=== PATIENT | female | born 1945 | race Two or more races ===

== ENCOUNTER 2018-01-08 13:14 | Emergency (ER) | payer MEDICARE ==
[~2018-01-08] VITALS: Ht 160 cm; Wt 114.3 kg
[~2018-01-08 13:14] MED LIST: ALBU5SOL6 PO; CARV6.2512 PO; CEFD300C37 PO; CYAN1TAB29 PO; FURO-93 PO; LOSA50TA2 PO; LOSA50TA7 PO; SOTA120T26 PO; SOTA80TA PO; TRIA115C HOMETP; WARF-36 PO; [UNRECOGNIZED DRUG - REMARK]
[2018-01-08 14:11] LABS: RAPID INFLUENZA A Negative (Negative); RAPID INFLUENZA B Negative (Negative)
[2018-01-08] MEDS ORDERED: BENZONATATE 100 MG CAPSULE PO ONE (14:30)
[2018-01-08 14:47] LABS: BASOPHILS # (AUTO) 0.02 x10^3/uL (0-0.1); BASOPHILS % (AUTO) 0 % (0-1); EOSINOPHILS # (AUTO) 0.19 x10^3/uL (0-0.4); EOSINOPHILS % (AUTO) 2 % (1-7); LYMPHOCYTES # (AUTO) 1.56 x10^3/uL (1-3.4); LYMPHOCYTES % (AUTO) 19 % (22-44); MD NO; MEAN CORPUSCULAR HEMOGLOBIN 25.6 pg (27.0-34.8); MEAN PLATELET VOLUME 9.4 fL (7.4-10.4); MONOCYTES # (AUTO) 0.92 x10^3/uL (0.2-0.8); MONOCYTES % (AUTO) 11 % (2-9); NEUTROPHILS # (AUTO) 5.38 x10^3/uL (1.8-6.8); NEUTROPHILS % (AUTO) 67 % (42-75); PLATELET COUNT 273 x10^3/uL (130-400); RED BLOOD COUNT 4.42 x10^6/uL (3.82-5.3); RED CELL DISTRIBUTION WIDTH 15.8 % (9.6-15.2)
[2018-01-08 15:00] LABS: ANION GAP 8 mmol/L (5-15); CALCIUM 8.5 mg/dL (8.5-10.1); CHLORIDE 111 mmol/L (98-107); CREATININE 0.64 mg/dL (0.55-1.02)
[2018-01-08 15:01] LABS: INTERNATIONAL NORMALIZED RATIO 1.06 (0.93-1.1)
[2018-01-08 15:03] LABS: TROPONIN I < 0.015 ng/mL (0.000-0.045)
[2018-01-08] MEDS ORDERED: BENZONATATE 100 MG CAPSULE ONE (15:08)
[2018-01-08 15:45] LABS: MICROSCOPIC INDICATED
[2018-01-08 15:47] LABS: CULTURE INDICATED? YES
[2018-01-08 17:14] VITALS: BP 148/75
== END 2018-01-08 17:17 | disposition home or self-care (01) ==
LOC: ED 16:50
DX: J20.8 Acute bronchitis due to other specified organisms (principal); B97.89 Other viral agents as the cause of diseases classified elsewhere; I50.9 Heart failure, unspecified; I48.91 Unspecified atrial fibrillation; I11.0 Hypertensive heart disease with heart failure; E11.9 Type 2 diabetes mellitus without complications
CPT/HCPCS: 36415; 71045; 80048; 81001; 82040; 83605; 83880; 84484; 85025; 85610; 85730; 87040; 87077; 87086; 87186; 87400; 93005; 99285

== ENCOUNTER → 2018-06-29 | Outpatient (CLI) | payer MEDICARE, OTHER ==
[~2018-06-29] MED LIST changes: +LOSA50TA14 PO; -LOSA50TA7 PO
== END | disposition home or self-care (01) ==
LOC: CFH 13:20
PROVIDERS: ATTEND Internal Medicine Cardiovascular Disease
DX: I11.0 Hypertensive heart disease with heart failure (principal); I50.9 Heart failure, unspecified; I08.2 Rheumatic disorders of both aortic and tricuspid valves; I48.91 Unspecified atrial fibrillation; E11.9 Type 2 diabetes mellitus without complications
CPT/HCPCS: 93306

== ENCOUNTER 2019-01-31 21:17 | Emergency (ER) | payer OTHER ==
[~2019-01-31] VITALS: Ht 157.5 cm; Wt 113.1 kg
--- NOTE | 2019-01-31 21:23 | NUR ---
EKG IN TRIAGE
[2019-01-31] MEDS ORDERED: SODIUM CHLORIDE FLUSH 10ML SYR IVF ONE (21:30)
--- NOTE | 2019-01-31 21:31 | NUR ---
Patient states she had shortness of breath secondary to a cough since yesterday. She has a history of a pacemaker and CHF. Patient's weight has been fluctuating. Patient has tenderness in her LLQ when palpated. Patient denies fever.
--- NOTE | 2019-01-31 21:38 | NUR ---
86% on RA. 88% on 4 lpm. Increased to 5 lpm. Patient O2 remains the same. RT in room with tx.
--- NOTE | 2019-01-31 22:39 | NUR ---
Pt refusing any iv's from rn's in ed. "i just really want someone that is really good at it." Refuses to allow attempts by any rns in this ed. aware.
[2019-01-31 23:16] LABS: BASOPHILS # (AUTO) 0.16 x10^3/uL (0-0.1); BASOPHILS % (AUTO) 1 % (0-1); EOSINOPHILS # (AUTO) 0.25 x10^3/uL (0-0.4); EOSINOPHILS % (AUTO) 2 % (1-7); LYMPHOCYTES % (AUTO) 18 % (22-44); MD NO; MEAN CORPUSCULAR HEMOGLOBIN 25.2 pg (27.0-34.8); MEAN CORPUSCULAR HGB CONC 31.3 g/dL (32.4-35.8); MEAN CORPUSCULAR VOLUME 80.5 fL (80-100); MEAN PLATELET VOLUME 9.8 fL (7.4-10.4); MONOCYTES # (AUTO) 0.96 x10^3/uL (0.2-0.8); MONOCYTES % (AUTO) 7 % (2-9); NEUTROPHILS % (AUTO) 72 % (42-75); PLATELET COUNT 251 x10^3/uL (130-400); RED CELL DISTRIBUTION WIDTH 16.3 % (9.6-15.2)
[2019-01-31 23:19] LABS: ALANINE AMINOTRANSFERASE 18 U/L (12-78); ALBUMIN 3.1 g/dL (3.4-5.0); ANION GAP 5 mmol/L (5-15); CALCIUM 8.6 mg/dL (8.5-10.1); CHLORIDE 115 mmol/L (98-107)
[2019-01-31 23:21] LABS: ALKALINE PHOSPHATASE 123 U/L (45-117); BILIRUBIN,TOTAL 0.2 mg/dL (0.2-1.0); TOTAL PROTEIN 6.9 g/dL (6.4-8.2); TROPONIN I < 0.015 ng/mL (0.000-0.045)
[2019-01-31 23:22] VITALS: BP 149/69
[2019-02-01] MEDS ORDERED: ALBUTEROL/IPRATROPIUM 2.5MG/0.5MG, 3 ML NPPB ONE
== END 2019-02-01 00:30 | disposition home or self-care (01) ==
LOC: ED 02-01 00:11
DX: J20.9 Acute bronchitis, unspecified (principal); R06.09 Other forms of dyspnea; I11.0 Hypertensive heart disease with heart failure; I50.9 Heart failure, unspecified; I48.91 Unspecified atrial fibrillation; E11.9 Type 2 diabetes mellitus without complications; Z95.0 Presence of cardiac pacemaker; Z90.710 Acquired absence of both cervix and uterus
CPT/HCPCS: 36415; 71045; 80053; 83880; 84484; 85025; 93005; 94640; 99283; 99284; J7620

== ENCOUNTER 2019-05-17 11:46 | Inpatient (IN) | payer MEDICARE, OTHER ==
[~2019-05-17] VITALS: Ht 160 cm; Wt 101.0 kg
--- NOTE | 2019-05-17 12:41 | NUR ---
PT TO ROOM 28 PER PEDIS WITH MASK IN PLACE. PT C/O SOB X2 DAYS WITH A SMALL PRODUCTIVE COUGH WITH WHITE SPUTM. PT WANTS TO MAKE SURE THIS IS HER CHF AND NOT THE COVID 19. PT IS ALERT AND ORIENTED X4, WITH FROM ALL EXTREMITIES. PT DOES BECOME WINDED WITH SMALL ACTIVITY. MD IN TO ASSESS PATIENT. WILL AWAIT RN ORDERS.
--- NOTE | 2019-05-17 13:11 | NUR ---
PT RESTING IN BED, AWAITING TEST RESULTS. NO NEEDS AT THIS TIME, WILL CONTINUE TO MONITOR.
[2019-05-17 13:17] LABS: ALBUMIN 3.2 g/dL (3.4-5.0); ANION GAP 8 mmol/L (5-15); CALCIUM 8.6 mg/dL (8.5-10.1); CHLORIDE 110 mmol/L (98-107); CREATININE 0.75 mg/dL (0.55-1.02)
[2019-05-17 13:20] LABS: TROPONIN I < 0.015 ng/mL (0.000-0.045)
[2019-05-17 13:28] LABS: MEAN CORPUSCULAR VOLUME 79.1 fL (80-100); MEAN PLATELET VOLUME 9.6 fL (7.4-10.4); PLATELET COUNT 450 x10^3/uL (130-400); RED BLOOD COUNT 4.88 x10^6/uL (3.82-5.3); RED CELL DISTRIBUTION WIDTH 22.7 % (9.6-15.2)
[2019-05-17 13:36] LABS: MEAN CORPUSCULAR HEMOGLOBIN 24.8 pg (27.0-34.8); MEAN CORPUSCULAR HGB CONC 31.3 g/dL (32.4-35.8)
[2019-05-17 13:39] LABS: MD YES
[2019-05-17 14:05] LABS: BAND#(MANUAL) 21.02 x10^3/uL; BANDS%(MANUAL) 20 % (0-7); BASOS% (MANUAL) 2 % (0-1); EOS#(MANUAL) 3.15 x10^3/uL (0.0-0.4); EOS% (MANUAL) 3 % (1-7); LYMPH#(MANUAL) 11.56 x10^3/uL (1-3.4); LYMPHS% (MANUAL) 11 % (22-44); METAMYELOCYTES# (MANUAL) 10.51 x10^3/uL (0-0); METAMYELOCYTES% (MANUAL) 10 % (0-1); MONOS% (MANUAL) 4 % (2-9); NRBC % (MANUAL) 2 % (0-1); PROGRANULOCYTES# (MANUAL) 1.05 x10^3/uL (0-0); PROGRANULOCYTES% (MANUAL) 1 % (0-0)
[2019-05-17 14:07] LABS: ANISOCYTOSIS 1+; HYPOCHROMIA 1+; MYELOCYTES% (MANUAL) 11 % (0-0); POLYCHROMASIA 1+
[2019-05-17 14:08] LABS: <PLATELET ESTIMATE> INCREASED; <PLT MORPHOLOGY> NORMAL PLT MORPH; SEGS% (MANUAL) 38 % (42-75)
--- NOTE | 2019-05-17 14:45 | NUR ---
PT INFORMED MY MD THAT SHE IS BEING ADMITTED DUE TO VERY HIGH WBC'S. WILL PUT AN IV IN FOR PATIENT PLACEMENT ONTO FLOOR.
[2019-05-17] MEDS ORDERED: ONDANSETRON ODT 4 MG PO PRN (16:00)
[2019-05-17] MEDS ORDERED: BISACODYL 10 MG SUPP PR PRN (16:00)
[2019-05-17] MEDS ORDERED: ONDANSETRON 2MG/ML, 2ML IVPush PRN (16:00)
[2019-05-17] MEDS ORDERED: ENOXAPARIN 40 MG/0.4 ML SQ SCH (16:00)
[2019-05-17] MEDS ORDERED: DOCUSATE 100 MG CAPSULE PO PRN (16:00)
--- NOTE | 2019-05-17 16:01 | NUR ---
TP RN: PT ADMITTED TO ONCOLOGY. NO RESP TESTING PRIOR TO ADMIT PER ERP/HOSPITALIST
[2019-05-17] MEDS: metFORMIN 500 MG TABLET PO SCH (18:03)
[2019-05-17 18:33] VITALS: BP 153/75
[2019-05-17] MEDS ORDERED: APIXABAN 5 MG TABLET PO SCH (21:00)
[2019-05-18 01:08] VITALS: BP 126/55
[2019-05-18 05:51] LABS: ALBUMIN 3.1 g/dL (3.4-5.0); ANION GAP 7 mmol/L (5-15); CALCIUM 8.8 mg/dL (8.5-10.1); CHLORIDE 109 mmol/L (98-107)
[2019-05-18 05:55] LABS: MEAN CORPUSCULAR HEMOGLOBIN 25.8 pg (27.0-34.8); MEAN CORPUSCULAR HGB CONC 33.5 g/dL (32.4-35.8); MEAN CORPUSCULAR VOLUME 77.1 fL (80-100); MEAN PLATELET VOLUME 9.6 fL (7.4-10.4); PLATELET COUNT 366 x10^3/uL (130-400); RED BLOOD COUNT 4.48 x10^6/uL (3.82-5.3); RED CELL DISTRIBUTION WIDTH 21.1 % (9.6-15.2)
[2019-05-18 05:56] LABS: ALANINE AMINOTRANSFERASE 24 U/L (12-78); ALKALINE PHOSPHATASE 112 U/L (45-117); BILIRUBIN,TOTAL 0.4 mg/dL (0.2-1.0); CREATININE 0.73 mg/dL (0.55-1.02); MD YES; TOTAL PROTEIN 6.9 g/dL (6.4-8.2)
[2019-05-18 06:00] LABS: BAND#(MANUAL) 21.85 x10^3/uL; BANDS%(MANUAL) 22 % (0-7); EOS#(MANUAL) 1.99 x10^3/uL (0.0-0.4); EOS% (MANUAL) 2 % (1-7); LYMPH#(MANUAL) 6.95 x10^3/uL (1-3.4); LYMPHS% (MANUAL) 7 % (22-44); MONOS#(MANUAL) 1.99 x10^3/uL (0.3-2.7); MONOS% (MANUAL) 2 % (2-9); NRBC % (MANUAL) 1 % (0-1)
[2019-05-18 06:02] LABS: ANISOCYTOSIS 1+; BASOS#(MANUAL) 0.99 x10^3/uL (0-0.1); BASOS% (MANUAL) 1 % (0-1); METAMYELOCYTES# (MANUAL) 11.92 x10^3/uL (0-0); METAMYELOCYTES% (MANUAL) 12 % (0-1); MYELOCYTES# (MANUAL) 8.94 x10^3/uL (0-0); MYELOCYTES% (MANUAL) 9 % (0-0); SEG#(MANUAL) 44.69 x10^3/uL (1.8-6.8); SEGS% (MANUAL) 45 % (42-75)
[2019-05-18 06:03] LABS: <PLATELET ESTIMATE> ADEQUATE; <PLT MORPHOLOGY> NORMAL PLT MORPH; HYPOCHROMIA 1+; POLYCHROMASIA 1+
[2019-05-18] MEDS: metFORMIN 500 MG TABLET PO SCH ×2 (08:00→18:34)
[2019-05-18] MEDS: GUAIFENESIN/DM 200-20MG, 10ML UDC PO PRN ×2 (08:35→20:17)
[2019-05-18] MEDS: LOSARTAN 50MG TABLET PO SCH (08:35)
[2019-05-18] MEDS: FOLIC ACID 1 MG TABLET PO SCH (08:37)
[2019-05-18] MEDS: FUROSEMIDE 40 MG TABLET PO SCH ×2 (08:37→20:18)
[2019-05-18] MEDS: CYANOCOBALAMIN 1,000 MCG TABLET PO SCH ×2 (08:38→20:18)
[2019-05-18 09:39] VITALS: BP 134/79
[2019-05-18] MEDS ORDERED: LIDOCAINE 1%, 10ML ONE (11:16)
[2019-05-18] MEDS ORDERED: FLUMAZENIL 0.1 MG/1 ML, 5ML ONE (11:35)
[2019-05-18] MEDS ORDERED: NALOXONE 1 MG/ML, 2ML ONE (11:35)
[2019-05-18] MEDS ORDERED: MIDAZOLAM 1 MG/ML, 5ML ONE (11:35)
[2019-05-18] MEDS ORDERED: FENTANYL PF 100 MCG/2ML ONE ×2 (11:35)
[2019-05-18 12:41] VITALS: BP 116/69
[2019-05-18 18:51] VITALS: BP 130/72
[2019-05-18] MEDS: ALBUTEROL SULFATE 2.5 MG/3 ML NPPB PRN (19:05)
[2019-05-18] MEDS: APIXABAN 5 MG TABLET PO SCH (20:17)
[2019-05-18] MEDS: HYDROXYUREA 500 MG CAPSULE PO SCH (21:30)
[2019-05-19 01:24] VITALS: BP 120/69
[2019-05-19 08:03] LABS: MEAN CORPUSCULAR HEMOGLOBIN 24.4 pg (27.0-34.8); MEAN CORPUSCULAR HGB CONC 31.6 g/dL (32.4-35.8); MEAN CORPUSCULAR VOLUME 77.2 fL (80-100); MEAN PLATELET VOLUME 9.1 fL (7.4-10.4); PLATELET COUNT 433 x10^3/uL (130-400); RED BLOOD COUNT 4.67 x10^6/uL (3.82-5.3); RED CELL DISTRIBUTION WIDTH 21.8 % (9.6-15.2)
[2019-05-19 08:11] VITALS: BP 129/77
[2019-05-19] MEDS: FOLIC ACID 1 MG TABLET PO SCH (08:18)
[2019-05-19] MEDS: CYANOCOBALAMIN 1,000 MCG TABLET PO SCH (08:18)
[2019-05-19] MEDS: LOSARTAN 50MG TABLET PO SCH (08:19)
[2019-05-19] MEDS: APIXABAN 5 MG TABLET PO SCH ×2 (08:19→20:43)
[2019-05-19] MEDS: FUROSEMIDE 40 MG TABLET PO SCH (08:19)
[2019-05-19] MEDS: metFORMIN 500 MG TABLET PO SCH ×2 (08:19→17:02)
[2019-05-19 08:20] LABS: MD YES
[2019-05-19] MEDS: HYDROXYUREA 500 MG CAPSULE PO SCH ×2 (08:25→21:49)
[2019-05-19 08:29] LABS: BAND#(MANUAL) 17.31 x10^3/uL; BANDS%(MANUAL) 19 % (0-7); EOS#(MANUAL) 1.82 x10^3/uL (0.0-0.4); EOS% (MANUAL) 2 % (1-7); LYMPHS% (MANUAL) 9 % (22-44); METAMYELOCYTES# (MANUAL) 6.38 x10^3/uL (0-0); METAMYELOCYTES% (MANUAL) 7 % (0-1); MONOS#(MANUAL) 6.38 x10^3/uL (0.3-2.7); MONOS% (MANUAL) 7 % (2-9); MYELOCYTES# (MANUAL) 22.78 x10^3/uL (0-0); MYELOCYTES% (MANUAL) 25 % (0-0); NRBC % (MANUAL) 1 % (0-1); PROGRANULOCYTES# (MANUAL) 0.91 x10^3/uL (0-0); PROGRANULOCYTES% (MANUAL) 1 % (0-0); SEG#(MANUAL) 27.33 x10^3/uL (1.8-6.8); SEGS% (MANUAL) 30 % (42-75)
[2019-05-19 08:33] LABS: <PLATELET ESTIMATE> INCREASED; <PLT MORPHOLOGY> NORMAL PLT MORPH; ANISOCYTOSIS 1+; HYPOCHROMIA 1+; POLYCHROMASIA 1+
[2019-05-19] MEDS: GUAIFENESIN/DM 200-20MG, 10ML UDC PO PRN (09:41)
[2019-05-19] MEDS: ALBUTEROL SULFATE 2.5 MG/3 ML NPPB PRN (10:25)
[2019-05-19 16:16] VITALS: BP 125/72
[2019-05-19 19:24] VITALS: BP 114/71
[2019-05-19] MEDS: ACETAMINOPHEN 500 MG TABLET PO PRN (21:48)
[2019-05-20 04:00] VITALS: BP 115/65
[2019-05-20 05:49] LABS: MEAN CORPUSCULAR VOLUME 78.5 fL (80-100); MEAN PLATELET VOLUME 9.5 fL (7.4-10.4); PLATELET COUNT 469 x10^3/uL (130-400); RED BLOOD COUNT 4.93 x10^6/uL (3.82-5.3); RED CELL DISTRIBUTION WIDTH 22.1 % (9.6-15.2)
[2019-05-20 05:52] LABS: MEAN CORPUSCULAR HEMOGLOBIN 24.7 pg (27.0-34.8); MEAN CORPUSCULAR HGB CONC 31.4 g/dL (32.4-35.8)
[2019-05-20 05:54] LABS: CHLORIDE 105 mmol/L (98-107)
[2019-05-20 06:06] LABS: ALANINE AMINOTRANSFERASE 26 U/L (12-78); ALBUMIN 3.2 g/dL (3.4-5.0); ALKALINE PHOSPHATASE 117 U/L (45-117); ANION GAP 9 mmol/L (5-15); BILIRUBIN,TOTAL 0.4 mg/dL (0.2-1.0); CREATININE 1.02 mg/dL (0.55-1.02); TOTAL PROTEIN 6.9 g/dL (6.4-8.2)
[2019-05-20 06:16] LABS: MD YES
[2019-05-20 06:24] LABS: BAND#(MANUAL) 32.74 x10^3/uL; BANDS%(MANUAL) 29 % (0-7); BASOS#(MANUAL) 2.26 x10^3/uL (0-0.1); BASOS% (MANUAL) 2 % (0-1); EOS#(MANUAL) 3.39 x10^3/uL (0.0-0.4); EOS% (MANUAL) 3 % (1-7); LYMPH#(MANUAL) 1.13 x10^3/uL (1-3.4); LYMPHS% (MANUAL) 1 % (22-44); METAMYELOCYTES# (MANUAL) 10.16 x10^3/uL (0-0); METAMYELOCYTES% (MANUAL) 9 % (0-1); MONOS#(MANUAL) 1.13 x10^3/uL (0.3-2.7); MONOS% (MANUAL) 1 % (2-9); MYELOCYTES# (MANUAL) 5.65 x10^3/uL (0-0); MYELOCYTES% (MANUAL) 5 % (0-0); NRBC % (MANUAL) 2 % (0-1); PROGRANULOCYTES# (MANUAL) 1.13 x10^3/uL (0-0); PROGRANULOCYTES% (MANUAL) 1 % (0-0); SEG#(MANUAL) 55.32 x10^3/uL (1.8-6.8); SEGS% (MANUAL) 49 % (42-75)
[2019-05-20 06:26] LABS: <PLATELET ESTIMATE> INCREASED; <PLT MORPHOLOGY> NORMAL PLT MORPH
[2019-05-20 06:27] LABS: ANISOCYTOSIS 1+; HYPOCHROMIA 1+; POLYCHROMASIA 1+
[2019-05-20 08:13] VITALS: BP 109/57
[2019-05-20] MEDS: metFORMIN 500 MG TABLET PO SCH ×2 (08:39→16:37)
[2019-05-20] MEDS: HYDROXYUREA 500 MG CAPSULE PO SCH ×3 (08:39→21:27)
[2019-05-20] MEDS: APIXABAN 5 MG TABLET PO SCH ×2 (08:39→21:28)
[2019-05-20] MEDS: FOLIC ACID 1 MG TABLET PO SCH (08:40)
[2019-05-20] MEDS: CYANOCOBALAMIN 1,000 MCG TABLET PO SCH (08:40)
[2019-05-20] MEDS: FUROSEMIDE 40 MG TABLET PO SCH (08:40)
[2019-05-20] MEDS: LOSARTAN 50MG TABLET PO SCH (08:40)
[2019-05-20 12:41] VITALS: BP 104/62
[2019-05-20] MEDS: ALBUTEROL SULFATE 2.5 MG/3 ML NPPB PRN (12:49)
[2019-05-20 19:06] VITALS: BP 127/49
[2019-05-21 02:14] VITALS: BP 120/62
[2019-05-21 05:37] LABS: CHLORIDE 105 mmol/L (98-107)
[2019-05-21 05:42] LABS: MEAN CORPUSCULAR VOLUME 78.3 fL (80-100); MEAN PLATELET VOLUME 9.8 fL (7.4-10.4); PLATELET COUNT 430 x10^3/uL (130-400); RED BLOOD COUNT 4.95 x10^6/uL (3.82-5.3); RED CELL DISTRIBUTION WIDTH 21.8 % (9.6-15.2)
[2019-05-21 05:43] LABS: ALANINE AMINOTRANSFERASE 29 U/L (12-78); ALBUMIN 3.2 g/dL (3.4-5.0); ALKALINE PHOSPHATASE 117 U/L (45-117); ANION GAP 8 mmol/L (5-15); BILIRUBIN,TOTAL 0.5 mg/dL (0.2-1.0); CREATININE 0.94 mg/dL (0.55-1.02)
[2019-05-21] MEDS: GUAIFENESIN/DM 200-20MG, 10ML UDC PO PRN (06:24)
[2019-05-21 06:31] LABS: MD YES
[2019-05-21 06:43] LABS: BAND#(MANUAL) 13.07 x10^3/uL; BANDS%(MANUAL) 12 % (0-7); BASOS#(MANUAL) 2.18 x10^3/uL (0-0.1); BASOS% (MANUAL) 2 % (0-1); EOS#(MANUAL) 2.18 x10^3/uL (0.0-0.4); EOS% (MANUAL) 2 % (1-7); LYMPH#(MANUAL) 4.36 x10^3/uL (1-3.4); LYMPHS% (MANUAL) 4 % (22-44); METAMYELOCYTES# (MANUAL) 4.36 x10^3/uL (0-0); METAMYELOCYTES% (MANUAL) 4 % (0-1); NRBC % (MANUAL) 2 % (0-1); SEG#(MANUAL) 74.05 x10^3/uL (1.8-6.8); SEGS% (MANUAL) 68 % (42-75)
[2019-05-21 06:44] LABS: ANISOCYTOSIS 1+; PROGRANULOCYTES# (MANUAL) 1.09 x10^3/uL (0-0); PROGRANULOCYTES% (MANUAL) 1 % (0-0)
[2019-05-21 06:45] LABS: <PLATELET ESTIMATE> INCREASED; <PLT MORPHOLOGY> NORMAL PLT MORPH; HYPOCHROMIA 1+; MYELOCYTES# (MANUAL) 7.62 x10^3/uL (0-0); MYELOCYTES% (MANUAL) 7 % (0-0)
[2019-05-21 07:28] VITALS: BP 102/64
[2019-05-21] MEDS: HYDROXYUREA 500 MG CAPSULE PO SCH ×3 (10:02→23:36)
[2019-05-21] MEDS: CYANOCOBALAMIN 1,000 MCG TABLET PO SCH (10:03)
[2019-05-21] MEDS: FOLIC ACID 1 MG TABLET PO SCH (10:03)
[2019-05-21] MEDS: FUROSEMIDE 40 MG TABLET PO SCH (10:03)
[2019-05-21] MEDS: APIXABAN 5 MG TABLET PO SCH ×2 (10:03→20:28)
[2019-05-21] MEDS: LOSARTAN 50MG TABLET PO SCH (10:04)
[2019-05-21 12:54] VITALS: BP 112/68
[2019-05-21] MEDS: ALBUTEROL SULFATE 2.5 MG/3 ML NPPB PRN (15:03)
[2019-05-21 18:48] VITALS: BP 112/56
[2019-05-21] MEDS: ACETAMINOPHEN 500 MG TABLET PO PRN (23:38)
[2019-05-22 02:58] VITALS: BP 120/70
[2019-05-22 04:50] LABS: ALANINE AMINOTRANSFERASE 26 U/L (12-78); ALBUMIN 3.3 g/dL (3.4-5.0); ANION GAP 5 mmol/L (5-15); CALCIUM 8.8 mg/dL (8.5-10.1); CHLORIDE 103 mmol/L (98-107); CREATININE 0.87 mg/dL (0.55-1.02)
[2019-05-22 04:53] LABS: ALKALINE PHOSPHATASE 116 U/L (45-117); BILIRUBIN,TOTAL 0.4 mg/dL (0.2-1.0); TOTAL PROTEIN 7.4 g/dL (6.4-8.2)
[2019-05-22 05:10] LABS: MEAN CORPUSCULAR HEMOGLOBIN 24.6 pg (27.0-34.8); MEAN CORPUSCULAR HGB CONC 31.8 g/dL (32.4-35.8); MEAN CORPUSCULAR VOLUME 77.4 fL (80-100); MEAN PLATELET VOLUME 9.8 fL (7.4-10.4); PLATELET COUNT 431 x10^3/uL (130-400); RED BLOOD COUNT 5.16 x10^6/uL (3.82-5.3); RED CELL DISTRIBUTION WIDTH 21.5 % (9.6-15.2)
[2019-05-22 05:36] LABS: MD YES
[2019-05-22 05:43] LABS: ANISOCYTOSIS 1+; BAND#(MANUAL) 8.65 x10^3/uL; BANDS%(MANUAL) 8 % (0-7); BASOS#(MANUAL) 1.08 x10^3/uL (0-0.1); BASOS% (MANUAL) 1 % (0-1); EOS#(MANUAL) 3.24 x10^3/uL (0.0-0.4); EOS% (MANUAL) 3 % (1-7); LYMPH#(MANUAL) 2.16 x10^3/uL (1-3.4); LYMPHS% (MANUAL) 2 % (22-44); METAMYELOCYTES# (MANUAL) 9.73 x10^3/uL (0-0); METAMYELOCYTES% (MANUAL) 9 % (0-1); MONOS#(MANUAL) 2.16 x10^3/uL (0.3-2.7); MONOS% (MANUAL) 2 % (2-9); MYELOCYTES# (MANUAL) 6.49 x10^3/uL (0-0); MYELOCYTES% (MANUAL) 6 % (0-0); NRBC % (MANUAL) 4 % (0-1); PROGRANULOCYTES# (MANUAL) 1.08 x10^3/uL (0-0); PROGRANULOCYTES% (MANUAL) 1 % (0-0); REACTIVE LYMPHS # (MANUAL) 1.08 x10^3/uL (0-0); REACTIVE LYMPHS % (MANUAL) 1 % (0-0); SEG#(MANUAL) 72.43 x10^3/uL (1.8-6.8); SEGS% (MANUAL) 67 % (42-75)
[2019-05-22 05:44] LABS: POLYCHROMASIA 1+
[2019-05-22 05:45] LABS: <PLATELET ESTIMATE> INCREASED; <PLT MORPHOLOGY> NORMAL PLT MORPH
[2019-05-22 07:43] VITALS: BP 121/72
[2019-05-22] MEDS: FOLIC ACID 1 MG TABLET PO SCH (08:56)
[2019-05-22] MEDS: APIXABAN 5 MG TABLET PO SCH ×2 (08:57→20:08)
[2019-05-22] MEDS: FUROSEMIDE 40 MG TABLET PO SCH (08:57)
[2019-05-22] MEDS: CYANOCOBALAMIN 1,000 MCG TABLET PO SCH (08:57)
[2019-05-22] MEDS: LOSARTAN 50MG TABLET PO SCH (08:58)
[2019-05-22] MEDS: HYDROXYUREA 500 MG CAPSULE PO SCH ×2 (08:59→16:40)
[2019-05-22] MEDS: GUAIFENESIN/DM 200-20MG, 10ML UDC PO PRN (09:14)
[2019-05-22 13:51] VITALS: BP 104/56
[2019-05-22 18:57] VITALS: BP 94/53
[2019-05-22 19:08] VITALS: BP 117/59
[2019-05-22] MEDS ORDERED: POLYETHYLENE GLYCOL 17 GM PACKET PO PRN (19:30)
[2019-05-23] MEDS: HYDROXYUREA 500 MG CAPSULE PO SCH ×3 (00:41→17:28)
[2019-05-23 04:00] VITALS: BP 109/58
[2019-05-23 04:39] LABS: MEAN CORPUSCULAR VOLUME 77.6 fL (80-100); MEAN PLATELET VOLUME 9.8 fL (7.4-10.4); PLATELET COUNT 463 x10^3/uL (130-400); RED BLOOD COUNT 5.08 x10^6/uL (3.82-5.3); RED CELL DISTRIBUTION WIDTH 21.7 % (9.6-15.2)
[2019-05-23 04:40] LABS: MEAN CORPUSCULAR HEMOGLOBIN 24.8 pg (27.0-34.8)
[2019-05-23 04:47] LABS: ALANINE AMINOTRANSFERASE 29 U/L (12-78); ALBUMIN 3.3 g/dL (3.4-5.0); ANION GAP 9 mmol/L (5-15); CALCIUM 9.1 mg/dL (8.5-10.1); CHLORIDE 103 mmol/L (98-107)
[2019-05-23 04:50] LABS: ALKALINE PHOSPHATASE 118 U/L (45-117); BILIRUBIN,TOTAL 0.4 mg/dL (0.2-1.0); CREATININE 0.94 mg/dL (0.55-1.02)
[2019-05-23 05:02] LABS: MD YES
[2019-05-23 05:05] LABS: <PLATELET ESTIMATE> INCREASED; <PLT MORPHOLOGY> NORMAL PLT MORPH; ANISOCYTOSIS 1+; BANDS%(MANUAL) 11 % (0-7); BASOS#(MANUAL) 1.03 x10^3/uL (0-0.1); BASOS% (MANUAL) 1 % (0-1); EOS#(MANUAL) 1.03 x10^3/uL (0.0-0.4); EOS% (MANUAL) 1 % (1-7); LYMPH#(MANUAL) 9.24 x10^3/uL (1-3.4); LYMPHS% (MANUAL) 9 % (22-44); METAMYELOCYTES# (MANUAL) 7.19 x10^3/uL (0-0); METAMYELOCYTES% (MANUAL) 7 % (0-1); MONOS#(MANUAL) 4.11 x10^3/uL (0.3-2.7); MONOS% (MANUAL) 4 % (2-9); MYELOCYTES# (MANUAL) 5.14 x10^3/uL (0-0); MYELOCYTES% (MANUAL) 5 % (0-0); NRBC % (MANUAL) 3 % (0-1); POLYCHROMASIA 1+; PROGRANULOCYTES# (MANUAL) 1.03 x10^3/uL (0-0); PROGRANULOCYTES% (MANUAL) 1 % (0-0); SEG#(MANUAL) 62.65 x10^3/uL (1.8-6.8); SEGS% (MANUAL) 61 % (42-75)
[2019-05-23] MEDS: APIXABAN 5 MG TABLET PO SCH ×2 (08:57→20:28)
[2019-05-23] MEDS: CYANOCOBALAMIN 1,000 MCG TABLET PO SCH (08:57)
[2019-05-23] MEDS: LOSARTAN 50MG TABLET PO SCH (08:58)
[2019-05-23] MEDS: FOLIC ACID 1 MG TABLET PO SCH (08:58)
[2019-05-23] MEDS: FUROSEMIDE 40 MG TABLET PO SCH (08:58)
[2019-05-23 09:01] VITALS: BP 111/70
[2019-05-23 13:04] VITALS: BP 117/73
[2019-05-23] MEDS: ALBUTEROL SULFATE 2.5 MG/3 ML NPPB PRN (15:50)
[2019-05-23 19:06] VITALS: BP 112/57
[2019-05-24] MEDS: HYDROXYUREA 500 MG CAPSULE PO SCH ×2 (00:16→09:03)
[2019-05-24 01:23] VITALS: BP 114/67
[2019-05-24 06:34] LABS: MEAN CORPUSCULAR HEMOGLOBIN 24.5 pg (27.0-34.8); MEAN CORPUSCULAR HGB CONC 31.2 g/dL (32.4-35.8); MEAN CORPUSCULAR VOLUME 78.3 fL (80-100); MEAN PLATELET VOLUME 9.9 fL (7.4-10.4); PLATELET COUNT 422 x10^3/uL (130-400); RED BLOOD COUNT 5.06 x10^6/uL (3.82-5.3)
[2019-05-24 06:36] LABS: RED CELL DISTRIBUTION WIDTH 21.9 % (9.6-15.2)
[2019-05-24 06:40] LABS: CHLORIDE 103 mmol/L (98-107)
[2019-05-24 06:45] VITALS: BP 114/67
[2019-05-24 06:47] LABS: ALANINE AMINOTRANSFERASE 28 U/L (12-78); ALBUMIN 3.2 g/dL (3.4-5.0); ALKALINE PHOSPHATASE 106 U/L (45-117); ANION GAP 6 mmol/L (5-15); BILIRUBIN,TOTAL 0.4 mg/dL (0.2-1.0); CALCIUM 8.8 mg/dL (8.5-10.1); TOTAL PROTEIN 6.9 g/dL (6.4-8.2)
[2019-05-24 06:51] LABS: MD YES
[2019-05-24 06:54] LABS: <PLATELET ESTIMATE> INCREASED; <PLT MORPHOLOGY> NORMAL PLT MORPH; ANISOCYTOSIS 1+; BAND#(MANUAL) 11.26 x10^3/uL; BANDS%(MANUAL) 13 % (0-7); BASOS#(MANUAL) 3.46 x10^3/uL (0-0.1); BASOS% (MANUAL) 4 % (0-1); EOS% (MANUAL) 3 % (1-7); LYMPH#(MANUAL) 1.73 x10^3/uL (1-3.4); LYMPHS% (MANUAL) 2 % (22-44); METAMYELOCYTES# (MANUAL) 1.73 x10^3/uL (0-0); METAMYELOCYTES% (MANUAL) 2 % (0-1); MONOS% (MANUAL) 6 % (2-9); MYELOCYTES% (MANUAL) 3 % (0-0); NRBC % (MANUAL) 3 % (0-1); POLYCHROMASIA 1+; SEG#(MANUAL) 58.02 x10^3/uL (1.8-6.8); SEGS% (MANUAL) 67 % (42-75)
[2019-05-24] MEDS ORDERED: HYDR500C PO (08:15)
[2019-05-24] MEDS ORDERED: ALLO100T30 PO (08:15)
[2019-05-24] MEDS ORDERED: APIX5TAB PO (08:15)
[2019-05-24] MEDS ORDERED: ALBU2.5V11 NEB (08:15)
[2019-05-24] MEDS: FUROSEMIDE 40 MG TABLET PO SCH (09:03)
[2019-05-24] MEDS: LOSARTAN 50MG TABLET PO SCH (09:03)
[2019-05-24] MEDS: FOLIC ACID 1 MG TABLET PO SCH (09:03)
[2019-05-24] MEDS: CYANOCOBALAMIN 1,000 MCG TABLET PO SCH (09:03)
[2019-05-24] MEDS: APIXABAN 5 MG TABLET PO SCH (09:03)
[2019-05-24] MEDS ORDERED: ALLOPURINOL 300 MG TABLET PO SCH (09:28)
== END 2019-05-24 12:12 | disposition home or self-care (01) | DRG 835 ==
LOC: ED 12:21 → EDIP 14:39 → 4NE 16:13 → 4NW 05-19 16:20
PROVIDERS: ADMIT Internal Medicine; ATTEND Internal Medicine
PROC: 07DR3ZX Extraction of Iliac Bone Marrow, Percutaneous Approach, Diagnostic (ICD-10-PCS; principal; 2019-05-18)
DX: C95.00 Acute leukemia of unspecified cell type not having achieved remission (principal); Z68.41 Body mass index [BMI] 40.0-44.9, adult; I42.9 Cardiomyopathy, unspecified; C92.10 Chronic myeloid leukemia, BCR/ABL-positive, not having achieved remission; E11.9 Type 2 diabetes mellitus without complications; E66.01 Morbid (severe) obesity due to excess calories; I11.0 Hypertensive heart disease with heart failure; I35.1 Nonrheumatic aortic (valve) insufficiency; I48.91 Unspecified atrial fibrillation; I50.9 Heart failure, unspecified; I70.0 Atherosclerosis of aorta; K76.0 Fatty (change of) liver, not elsewhere classified; R53.82 Chronic fatigue, unspecified; Z79.01 Long term (current) use of anticoagulants; Z80.6 Family history of leukemia; Z82.5 Family history of asthma and other chronic lower respiratory diseases; Z83.3 Family history of diabetes mellitus; Z85.41 Personal history of malignant neoplasm of cervix uteri; Z90.710 Acquired absence of both cervix and uterus; Z95.0 Presence of cardiac pacemaker; Z98.84 Bariatric surgery status
CPT/HCPCS: 36415; 38222; 71045; 76705; 77012; 80048; 80053; 81479; 82040; 83615; 83735; 83880; 84100; 84484; 84550; 85025; 85060; 85097; 88237; 88264; 88280; 88305; 88311; 88313; 88360; 93306; 94640; 99156; 99157; 99285; G0378; J2250; J2405; J3010; J7613; J2310

== ENCOUNTER 2019-09-12 15:29 | Observation (INO) | payer MEDICARE ==
[~2019-09-12] VITALS: Ht 160 cm; Wt 105.4 kg
[~2019-09-12 15:29] MED LIST changes: +ALBU2.5V11 NEB; +ALLO100T30 PO; +APIX5TAB PO; +HYDR500C PO
[2019-09-12] MEDS ORDERED: ONDANSETRON 2MG/ML, 2ML ONE ×3 (16:52→20:38)
[2019-09-12] MEDS ORDERED: MORPHINE SULFATE 4 MG/ML, 1ML ONE ×4 (16:52→22:09)
[2019-09-12] MEDS ORDERED: ONDANSETRON 2MG/ML, 2ML IVPush ONE (17:00)
[2019-09-12 17:02] LABS: BASOPHILS # (AUTO) 0.05 x10^3/uL (0-0.1); BASOPHILS % (AUTO) 1 % (0-1); EOSINOPHILS # (AUTO) 0.14 x10^3/uL (0-0.4); EOSINOPHILS % (AUTO) 1 % (1-7); LYMPHOCYTES # (AUTO) 1.38 x10^3/uL (1-3.4); LYMPHOCYTES % (AUTO) 15 % (22-44); MD NO; MEAN CORPUSCULAR HEMOGLOBIN 25.4 pg (27.0-34.8); MEAN CORPUSCULAR HGB CONC 31.3 g/dL (32.4-35.8); MEAN CORPUSCULAR VOLUME 81.3 fL (80-100); MEAN PLATELET VOLUME 9.2 fL (7.4-10.4); MONOCYTES # (AUTO) 0.78 x10^3/uL (0.2-0.8); MONOCYTES % (AUTO) 8 % (2-9); NEUTROPHILS # (AUTO) 7.19 x10^3/uL (1.8-6.8); NEUTROPHILS % (AUTO) 75 % (42-75); PLATELET COUNT 285 x10^3/uL (130-400); RED BLOOD COUNT 4.67 x10^6/uL (3.82-5.3); RED CELL DISTRIBUTION WIDTH 17.7 % (9.6-15.2)
[2019-09-12 17:12] LABS: ALANINE AMINOTRANSFERASE 147 U/L (12-78); ALBUMIN 3.6 g/dL (3.4-5.0); ANION GAP 4 mmol/L (5-15); CALCIUM 8.9 mg/dL (8.5-10.1); CHLORIDE 106 mmol/L (98-107); CREATININE 1.05 mg/dL (0.55-1.02)
--- NOTE | 2019-09-12 17:12 | NUR ---
IV ATTEMPT X2 WITHOUT SUCCESS. PT REFUSES FURTHER ATTEMPTS. PROVIDER NOTIFIED.
[2019-09-12 17:14] LABS: ALKALINE PHOSPHATASE 167 U/L (45-117); BILIRUBIN,TOTAL 0.5 mg/dL (0.2-1.0); TOTAL PROTEIN 7.8 g/dL (6.4-8.2)
[2019-09-12] MEDS ORDERED: ONDANSETRON ODT 4 MG ONE (17:16)
[2019-09-12] MEDS ORDERED: OXYcodone/APAP 5/325MG TABLET ONE (17:16)
[2019-09-12] MEDS ORDERED: ONDANSETRON ODT 4 MG PO ONE (17:30)
[2019-09-12] MEDS ORDERED: OXYcodone/APAP 5/325MG TABLET PO ONE (17:30)
[2019-09-12] MEDS ORDERED: SODIUM CHLORIDE FLUSH 10ML SYR IVF ONE (17:30)
[2019-09-12 18:33] LABS: MICROSCOPIC INDICATED
[2019-09-12] MEDS ORDERED: CEFTRIAXONE PMX 1GM/50ML 50 ML IV ONE (19:00)
[2019-09-12] MEDS ORDERED: SODIUM CHLORIDE FLUSH 10ML SYR IVF PRN (19:30)
[2019-09-12] MEDS ORDERED: CEFTRIAXONE PMX 1GM/50ML 50 ML ONE (19:32)
--- NOTE | 2019-09-12 19:58 | NUR ---
MULTIPLE ATTEMPTS MADE BY STAFF TO START IV WITHOUT SUCCESS. PT REFUSING MORE ATTEMPTS. PROVIDER NOTIFIED.
[2019-09-12] MEDS ORDERED: DOCUSATE 100 MG CAPSULE PO PRN (21:00)
[2019-09-12] MEDS ORDERED: HYDROcodone/APAP 5/325 TABLET PO PRN (21:00)
[2019-09-12] MEDS ORDERED: ONDANSETRON ODT 4 MG PO PRN (21:00)
[2019-09-12] MEDS ORDERED: BISACODYL 10 MG SUPP PR PRN (21:00)
[2019-09-12] MEDS ORDERED: POLYETHYLENE GLYCOL 17 GM PACKET PO PRN (21:00)
[2019-09-12] MEDS ORDERED: hydrALAzine 20 MG/ML, 1ML IVPush PRN (21:00)
[2019-09-12] MEDS: MORPHINE SULFATE 4 MG/ML, 1ML IVPush PRN ×2 (21:05→22:10)
--- NOTE | 2019-09-12 21:13 | NUR ---
Report received and care assumed. PT just received pain meds and states pain is better. Antibiotics infusing. Pt to be admitted to floor. Awaiting rm assignment. no further needs expressed. VSS. Call light in reach.
[2019-09-12] MEDS: ONDANSETRON 2MG/ML, 2ML IVPush PRN (22:42)
[2019-09-12] MEDS: ACETAMINOPHEN 325 MG TABLET PO SCH (22:44)
[2019-09-12 22:46] VITALS: BP 127/72
[2019-09-12] MEDS ORDERED: ALBUTEROL SULFATE 2.5MG/0.5ML NEB PRN (23:00)
[2019-09-12 23:34] LABS: TROPONIN I < 0.015 ng/mL (0.000-0.045)
[2019-09-13] MEDS: APIXABAN 5 MG TABLET PO SCH ×2 (00:47→10:42)
[2019-09-13 00:54] VITALS: BP 119/69
[2019-09-13] MEDS: ONDANSETRON 2MG/ML, 2ML IVPush PRN (04:47)
[2019-09-13 05:29] LABS: BASOPHILS # (AUTO) 0.02 x10^3/uL (0-0.1); BASOPHILS % (AUTO) 0 % (0-1); EOSINOPHILS # (AUTO) 0.03 x10^3/uL (0-0.4); EOSINOPHILS % (AUTO) 0 % (1-7); LYMPHOCYTES # (AUTO) 0.83 x10^3/uL (1-3.4); LYMPHOCYTES % (AUTO) 8 % (22-44); MD NO; MEAN CORPUSCULAR HEMOGLOBIN 25.5 pg (27.0-34.8); MEAN CORPUSCULAR HGB CONC 31.1 g/dL (32.4-35.8); MEAN CORPUSCULAR VOLUME 82.1 fL (80-100); MEAN PLATELET VOLUME 9.5 fL (7.4-10.4); MONOCYTES # (AUTO) 0.79 x10^3/uL (0.2-0.8); MONOCYTES % (AUTO) 8 % (2-9); NEUTROPHILS % (AUTO) 83 % (42-75); PLATELET COUNT 282 x10^3/uL (130-400); RED BLOOD COUNT 4.63 x10^6/uL (3.82-5.3); RED CELL DISTRIBUTION WIDTH 17.8 % (9.6-15.2)
[2019-09-13 05:57] LABS: ANION GAP 6 mmol/L (5-15); CALCIUM 8.4 mg/dL (8.5-10.1); CHLORIDE 104 mmol/L (98-107); CREATININE 1.45 mg/dL (0.55-1.02)
[2019-09-13] MEDS: ACETAMINOPHEN 325 MG TABLET PO SCH ×2 (06:16→10:42)
[2019-09-13] MEDS: SENNA/DOCUSATE TABLET PO SCH ×2 (09:00→10:41)
[2019-09-13] MEDS ORDERED: TEMPLATE NON-FORMULARY MED. (Cyanocobalamin/Folic Acid** (Vitamin B12-Folic Acid Tablet**) HOMEMEDPO SCH (09:00)
[2019-09-13] MEDS ORDERED: LOSARTAN 50MG TABLET PO SCH (09:00)
[2019-09-13 09:50] VITALS: BP 117/70
[2019-09-13] MEDS: ALLOPURINOL 100 MG TABLET PO SCH ×2 (10:41→10:47)
[2019-09-13] MEDS ORDERED: CEFD300C37 PO (11:49)
[2019-09-13] MEDS ORDERED: CEFTRIAXONE PMX 1GM/50ML 50 ML IV SCH (17:00)
== END 2019-09-13 12:54 | disposition home or self-care (01) ==
LOC: ED 18:32 → EDIP 19:26 → INTOOBSV 19:26 → 3N 22:29
PROVIDERS: ADMIT Family Medicine; ATTEND Family Medicine
DX: S12.9XXA Fracture of neck, unspecified, initial encounter (principal); S22.009A Unspecified fracture of unspecified thoracic vertebra, initial encounter for closed fracture; S32.009A Unspecified fracture of unspecified lumbar vertebra, initial encounter for closed fracture; N30.90 Cystitis, unspecified without hematuria; R74.8 Abnormal levels of other serum enzymes; R74.0 Nonspecific elevation of levels of transaminase and lactic acid dehydrogenase [LDH]; I27.20 Pulmonary hypertension, unspecified; I13.0 Hypertensive heart and chronic kidney disease with heart failure and stage 1 through stage 4 chronic kidney disease, or unspecified chronic kidney disease; E11.22 Type 2 diabetes mellitus with diabetic chronic kidney disease; I50.9 Heart failure, unspecified; N18.3 Chronic kidney disease, stage 3 (moderate); I48.91 Unspecified atrial fibrillation; N17.9 Acute kidney failure, unspecified; R94.5 Abnormal results of liver function studies; C92.11 Chronic myeloid leukemia, BCR/ABL-positive, in remission; I42.9 Cardiomyopathy, unspecified; D18.09 Hemangioma of other sites; M81.0 Age-related osteoporosis without current pathological fracture; Z68.41 Body mass index [BMI] 40.0-44.9, adult; Z79.899 Other long term (current) drug therapy; Z79.01 Long term (current) use of anticoagulants; Z85.41 Personal history of malignant neoplasm of cervix uteri; Z87.892 Personal history of anaphylaxis; Z90.49 Acquired absence of other specified parts of digestive tract; W18.30XA Fall on same level, unspecified, initial encounter; Y93.89 Activity, other specified; Y92.009 Unspecified place in unspecified non-institutional (private) residence as the place of occurrence of the external cause
CPT/HCPCS: 36415; 72128; 72131; 76700; 80048; 80053; 81001; 83690; 84484; 85025; 87086; 93005; 96365; 96375; 96376; 97163; 99285; G0378; J0696; J2270; J2405; Q0162

== ENCOUNTER 2019-09-16 18:52 | Emergency (ER) | payer MEDICARE ==
[~2019-09-16] VITALS: Ht 160 cm; Wt 105.1 kg
[2019-09-16 19:02] VITALS: BP 137/118
[2019-09-16 19:35] LABS: BASOPHILS # (AUTO) 0.05 x10^3/uL (0-0.1); BASOPHILS % (AUTO) 1 % (0-1); EOSINOPHILS # (AUTO) 0.08 x10^3/uL (0-0.4); EOSINOPHILS % (AUTO) 1 % (1-7); LYMPHOCYTES # (AUTO) 1.59 x10^3/uL (1-3.4); LYMPHOCYTES % (AUTO) 16 % (22-44); MD NO; MEAN CORPUSCULAR HEMOGLOBIN 25.8 pg (27.0-34.8); MEAN CORPUSCULAR HGB CONC 31.8 g/dL (32.4-35.8); MEAN PLATELET VOLUME 9.8 fL (7.4-10.4); MONOCYTES # (AUTO) 0.76 x10^3/uL (0.2-0.8); MONOCYTES % (AUTO) 8 % (2-9); NEUTROPHILS # (AUTO) 7.48 x10^3/uL (1.8-6.8); NEUTROPHILS % (AUTO) 75 % (42-75); PLATELET COUNT 320 x10^3/uL (130-400); RED BLOOD COUNT 4.58 x10^6/uL (3.82-5.3)
[2019-09-16 19:44] LABS: ANION GAP 4 mmol/L (5-15); CHLORIDE 109 mmol/L (98-107); CREATININE 0.84 mg/dL (0.55-1.02)
[2019-09-16] MEDS ORDERED: MAGNESIUM CITRATE 300ML ORAL SOL ONE (20:45)
[2019-09-16] MEDS ORDERED: METHYLNALTREXONE 12 MG/0.6 ML SYR SQ ONE ×2 (20:45→21:00)
[2019-09-16] MEDS ORDERED: MAGNESIUM CITRATE 300ML ORAL SOL PO ONE (21:00)
[2019-09-16] MEDS ORDERED: OMNIPAQUE 350 MG/ML, 100ML BOTTLE ONE (21:05)
--- NOTE | 2019-09-16 22:29 | NUR ---
TASK RN: Patient/Caregiver given discharge instructions and they have confirmed that they understand the instructions. Patient ambulatory with steady gait.
== END 2019-09-16 22:30 | disposition home or self-care (01) ==
LOC: ED 21:34
DX: K59.00 Constipation, unspecified (principal); I11.0 Hypertensive heart disease with heart failure; I50.9 Heart failure, unspecified; E11.9 Type 2 diabetes mellitus without complications; I48.91 Unspecified atrial fibrillation; Z95.0 Presence of cardiac pacemaker; Z90.710 Acquired absence of both cervix and uterus
CPT/HCPCS: 36415; 74177; 80048; 85025; 96372; 99285; Q9967

== ENCOUNTER → 2019-11-29 | Outpatient (CLI) | payer MEDICARE | END | disposition home or self-care (01) | LOC: CVU 10:08 | PROVIDERS: ATTEND Internal Medicine Cardiovascular Disease | DX: I08.0 Rheumatic disorders of both mitral and aortic valves (principal); I50.9 Heart failure, unspecified; I48.91 Unspecified atrial fibrillation | CPT/HCPCS: 93306; 93356 ==